=== PATIENT | female | born 1950 | race Asian ===

== ENCOUNTER → 2018-06-29 | Outpatient (CLI) | payer OTHER, MEDICARE ==
[~2018-06-29] MED LIST: ADVAIR IH; ATROVENT INHALE14 GM IH; AZITHROMYCIN PO; BIAXIN PO; FLAGYL 250250 MG/TAB PO; FORADIL AERO0.012 MG IH; FOSAMAX 70MG TA70 MG PO; FOSAMAX PO; GUAIFENESI100 MG/51 PO; IPRATROPIUM BROM3 M1 IH; LEVAQUIN 2250 MG/TAB PO; MUCINEX 60600 MG/TA1 PO; NEXIUM 20MG CAP20 MG PO; NEXIUM 40MG40 MG PO; OMEGA 31000 MG PO; PLENDIL; PLENDIL10 MG PO; POTASSIUM IODID PO; PROAIR HFA0.09 MG/AC IH; RT SPIRIVA18 MCG IH; SALSALATE500 MG PO; SINGULAIR10 MG PO; SPIRIVA18 MCG IH; ULTRAM 50MG TAB50 MG PO; VENTOLIN0.09 MG IH; VOLTAREN75 MG PO; XIFAXAN200 MG PO; [UNRECOGNIZED DRUG - OTHER] OU
== END ==
LOC: COL.RAD 09:24
DX: K21.9 Gastro-esophageal reflux disease without esophagitis (principal)

== ENCOUNTER 2018-07-12 06:14 | Day surgery (SDC) | payer MEDICARE, OTHER ==
[~2018-07-12] VITALS: Ht 154.9 cm; Wt 61.9 kg
[2018-07-12] VITALS (11 sets, daily range): BP systolic 111–131; BP diastolic 55–78; PULSE 78–98; TEMP 97.9–99.1
[2018-07-12] MEDS ORDERED: LYRICA 50MG CAP50 MG PO (07:59)
[2018-07-12] MEDS ORDERED: HYZAAR 50-12.1 UDTAB PO (08:00)
[2018-07-12] MEDS ORDERED: ZANTAC 150MG T150 MG PO (08:00)
[2018-07-13 00:03] VITALS: BP 115/63; PULSE 88; TEMP 98.6
[2018-07-13 04:00] VITALS: BP 119/66; PULSE 83; TEMP 98.6
[2018-07-13 07:21] VITALS: BP 121/63; PULSE 83; TEMP 98.3
[2018-07-13 11:28] VITALS: BP 130/71; PULSE 76; TEMP 98.4
[2018-07-13 15:20] VITALS: BP 124/73; PULSE 79; TEMP 97.8
== END 2018-07-13 17:50 | disposition home or self-care (01) ==
LOC: SDCO 06:14 → SURG 11:11 → SDCO 07-13 17:50
DX: K21.9 Gastro-esophageal reflux disease without esophagitis (principal); K44.9 Diaphragmatic hernia without obstruction or gangrene; I10 Essential (primary) hypertension; E03.9 Hypothyroidism, unspecified; Z79.899 Other long term (current) drug therapy; Z80.0 Family history of malignant neoplasm of digestive organs; G62.9 Polyneuropathy, unspecified
CPT/HCPCS: OP; C1713; J0690; J1100; J2370; J2405; J2704; J3010; J7042; J7120

== ENCOUNTER → 2018-09-01 | Outpatient (CLI) | payer MEDICARE, OTHER ==
[~2018-09-01] MED LIST changes: +HYZAAR 50-12.1 UDTAB PO; +LYRICA 50MG CAP50 MG PO; +ZANTAC 150MG T150 MG PO
== END ==
LOC: COL.RAD 12:25
DX: K21.9 Gastro-esophageal reflux disease without esophagitis (principal); K22.8 Other specified diseases of esophagus; Z98.890 Other specified postprocedural states